=== PATIENT | female | born 1940 | race Caucasian/White ===

== ENCOUNTER → 2019-07-22 | Outpatient (CLI) | payer OTHER, BC ==
[~2019-07-22] VITALS: Ht 154.9 cm; Wt 69.4 kg
[~2019-07-22] MED LIST: ASA81BEC PO; ATORVASTATIN CA80 MG PO; BENICAR40 MG PO; FOSAMAX 70 MG T70 MG PO; IRON PO; OMEPRAZOLE 20 M20 M1 PO; VITAMIN C500 M2 PO; VITAMIN D250000 UNIT PO
--- NOTE | ~2019-07-22 | HPC ---
[facility] [place] [address] PAIN MANAGEMENT CONSULTATION Name: CAHU HOWELL Room #: REG [facility] M..#: [id number] Admission: 07/22/19 Attend Phys: Antonio Preciado MD Discharge: Date of : 40 Report #: [id number] THIS REPORT FOR: //name// CC: Adair Underwood MD [facility] ERINN Paiz MD DATE OF SERVICE: 07/22/2019 CHIEF COMPLAINT: Low back pain radiating into both hips and legs. HISTORY OF PRESENT ILLNESS: The patient is a delightful 79-year-old very active female who is here today complaining of pain in her back, hips and legs. The pain is severe, particularly when she is "being idle" When she sits too long or even lies down in bed at night, she has severe pain in her back that radiates into her legs, left worse than right. When she is walking, she is at her best. She mowed her lawn yesterday. She enjoys playing outside with her grandchildren, kicking the ball and playing baseball. She is able to do those things fine. It is only when she slows down or sits that the pain becomes severe and radicular. She describes her pain in that setting as a constant, burning, shooting, aching pain and she scores as a 10/10 when it occurs. MEDICATIONS: Omeprazole, alendronate, atorvastatin, olmesartan, vitamin D and C, iron, aspirin. ALLERGIES: None. PAST MEDICAL HISTORY: She had a shoulder surgery with Dr. Twin Paiz on 12/10/2018. She is treated for hypertension by Dr. Underwood and Dr. Hardwick. She otherwise complains of no other significant medical problems other than generalized arthritis and back pain. REVIEW OF SYSTEMS: Completed by the patient is negative other than some constipation and nocturia and occasional lightheadedness and dizziness. SOCIAL HISTORY: Listed as retired. She denies use of tobacco, alcohol, marijuana or any other illegal substances. PHYSICAL EXAMINATION: GENERAL: She is a very pleasant, 79-year-old, who looks and acts younger than her age. She moves easily from sitting to standing position, ambulates without antalgic features. [facility] [address] [place] [address] PAIN MANAGEMENT CONSULTATION Name: CHAU HOWELL [facility] [id number] Admission: 07/22/19 Attend Phys: Antonio Preciado MD Discharge: Date of : 40 Report #: [id number] VITAL SIGNS: She is 5 feet 1 inch, 153 pounds, BMI 28.9. Blood pressure 145/92, heart rate 93, respirations 16, O2 sat 97. HEENT: Reveals pupils to be equal, round, reactive to light. EOMs are intact. Mucous membranes are moist. NECK: Supple. No tenderness in the occiput. Good range of motion. CHEST: Clear. CARDIAC: Regular rhythm without murmur. ABDOMEN: Soft, no organomegaly. MUSCULOSKELETAL: Positive for some increased pain with lateral tilt, rotational movements, forward flexion and extension. Straight leg raising is mildly positive in the supine position, worse on the left than the right. Sensation is intact with no focal areas of numbness and there are no areas or dermatomal distributions or myotomal weakness. DIAGNOSTIC DATA: X-rays reviewed. There is no evidence of spinal stenosis. There is, however, at multiple levels, evidence of [id number] bilateral neural foraminal narrowing due to a diffuse disk desiccation and bulging, particularly L3-L4 through L5-S1. The foraminal narrowing is most significant at L4-L5 as well as L3-L4. This would be consistent with some of the radicular-like symptoms. RECOMMENDATIONS: She is a good candidate for an epidural injection. Reviewed the potential risks and benefits of this procedure with her, and she would like to proceed with treatment. We will reschedule her back in the clinic for an injection in a few days at her request. I explained the procedure in detail including risks and benefits. Medications and therapy have been discussed as well. We will discuss this further at followup visit. By: [id number] Antonio Preciado MD /nt
[2019-07-22 15:02] VITALS: BP 145/92
--- NOTE | 2019-07-22 15:03 | NUR ---
Pain Clinic Assessment: 1. History of Osteoarthritis: Left Lower Extremity Right Lower Extremity Left Upper Extremity Right Lower Extremity History of Rheumatoid Arthritis: Not Applicable 2. Height: 5 ft. 1 in. 154.9 cm. Weight: 153.0 lb. oz. 69.400 kg. Patient's BMI: 28.9 3. Vital Signs: BP: 145/92 Pulse: 93 Resp: 16 Temp: 02 Sat: 97 ECG Mon: 4. Pain Intensity: 10 5. Fall Risk: Dizziness: N Needs help standing or walking: N Fallen in the last 3 months: N Fall risk comments: 6. Patient on Blood Thinner: None 7. History of Hypertension: Y 8. Opioid Therapy greater than 6 weeks: N Opiate Contract Signed: 9. Risk Assessment Tool Provided: 10. Functional Assessment Tool: 11. Recreational Drug Use: Never Drug Type: Tobacco Use: Never Smoker Tobacco Type: Amount or Packs/day: How Many Years: Alcohol Use: No Frequency: Quant:
== END ==
LOC: PAIN 07:00
DX: M54.5 Low back pain (principal); I10 Essential (primary) hypertension; Z79.899 Other long term (current) drug therapy

== ENCOUNTER → 2019-07-27 | Outpatient (CLI) | payer OTHER, BC ==
[~2019-07-27] VITALS: Ht 154.9 cm; Wt 70.5 kg
--- NOTE | ~2019-07-27 | HPC ---
[facility] [place] [address] [place] [address] PAIN MANAGEMENT CONSULTATION Name: CHAU HOWELL Room #: REG [facility] M..#: [id number] Admission: 07/27/19 Attend Phys: Antonio Preciado MD Discharge: Date of : 40 Report #: [id number] THIS REPORT FOR: //name// CC: Adair Paiz MD DATE OF SERVICE: 07/27/2019 Followup visit for intractable low back pain with radiculopathy. Bilateral neural foraminal narrowing and stenosis. The patient was seen in consultation on 07/22/2019. At that time, we were unable to proceed with injection. We received preauthorization to go forward and I have explained the procedure to her in some detail including potential risks and benefits. Please refer to prior dictation of 07/22/2019. Today, there have been no significant changes in her condition since her last visit 10 days ago. PHYSICAL EXAMINATION: She is pleasant. Blood pressure 139/84, heart rate 77, respirations 16, O2 sat 98. Her gait is mildly antalgic. She continues to show some increased pain with spinal rotational movements and lateral tilt and there is mild radicular symptom with straight leg raising bilaterally, worse on the left than the right. IMPRESSION: Lumbar radiculopathy. PROCEDURE: Lumbar epidural steroid injection under fluoroscopic guidance. The patient was taken to fluoroscopic suite, placed in prone position. Skin prepped with ChloraPrep. Skin anesthetized over the L4-L5 interspace. A 20-gauge Tuohy epidural needle was advanced in first attempt in the epidural space with loss of resistance technique. There was no blood or CSF aspirated. A 1 mL of Omnipaque was injected. Good spread of the dye was observed in the epidural space and an excellent epidurogram achieved. It was followed by 3 mL of 0.5% lidocaine with 80 mg of triamcinolone. She tolerated the procedure well. There were no complications and she was discharged with a pain score of 0 from the recovery room with a followup visit. I plan to see her back in 03-[address] [facility] [address] [place] [address] PAIN MANAGEMENT CONSULTATION Name: CHAU HOWELL Room #: REG [facility].#: [id number] Admission: 07/27/19 Attend Phys: Antonio Preciado MD Discharge: Date of : 40 Report #: [id number] weeks if necessary. If she is doing well, we will hold off on further injections. By: [id number] Antonio Preciado MD /nt
[2019-07-27 09:44] VITALS: BP 139/84
--- NOTE | 2019-07-27 10:04 | NUR ---
Pain Clinic Assessment: 1. History of Osteoarthritis: Left Lower Extremity Right Lower Extremity Left Upper Extremity Right Lower Extremity History of Rheumatoid Arthritis: Not Applicable 2. Height: 5 ft. 1 in. 154.9 cm. Weight: 155.4 lb. oz. 70.489 kg. Patient's BMI: 29.4 3. Vital Signs: BP: 139/84 Pulse: 77 Resp: 16 Temp: 02 Sat: 98 ECG Mon: 4. Pain Intensity: 8-9 5. Fall Risk: Dizziness: Y Needs help standing or walking: N Fallen in the last 3 months: N Fall risk comments: 6. Patient on Blood Thinner: None 7. History of Hypertension: Y 8. Opioid Therapy greater than 6 weeks: N Opiate Contract Signed: 9. Risk Assessment Tool Provided: 10. Functional Assessment Tool: 11. Recreational Drug Use: Never Drug Type: Tobacco Use: Never Smoker Tobacco Type: Amount or Packs/day: How Many Years: Alcohol Use: No Frequency: Quant:
== END | disposition home or self-care (01) ==
LOC: PAIN 06:49
DX: M54.16 Radiculopathy, lumbar region (principal); M99.73 Connective tissue and disc stenosis of intervertebral foramina of lumbar region; Z79.899 Other long term (current) drug therapy; Z79.82 Long term (current) use of aspirin; Z98.890 Other specified postprocedural states

== ENCOUNTER → 2020-03-08 | Outpatient (CLI) | payer OTHER, BC | LOC: SJCVC 10:47 | DX: I10 Essential (primary) hypertension (principal); E78.00 Pure hypercholesterolemia, unspecified; K21.9 Gastro-esophageal reflux disease without esophagitis ==

== ENCOUNTER → 2020-10-25 | Outpatient (CLI) | payer OTHER | LOC: SJCVCIMAG 07:44 | PROVIDERS: ATTEND Internal Medicine Cardiovascular Disease | DX: R07.9 Chest pain, unspecified (principal); R42 Dizziness and giddiness; I10 Essential (primary) hypertension; E78.00 Pure hypercholesterolemia, unspecified; E78.5 Hyperlipidemia, unspecified ==

== ENCOUNTER → 2021-05-10 | Outpatient (CLI) | payer OTHER ==
[~2021-05-10] VITALS: Ht 154.9 cm; Wt 65.9 kg
[~2021-05-10] MED LIST changes: +ALEVE220 MG PO
[2021-05-10 12:55] VITALS: BP 146/79
--- NOTE | 2021-05-10 13:10 | NUR ---
Pain Clinic Assessment: 1. History of Osteoarthritis: Left Lower Extremity Right Lower Extremity Left Upper Extremity Right Lower Extremity History of Rheumatoid Arthritis: Not Applicable 2. Height: 5 ft. 1 in. 154.9 cm. Weight: 145.2 lb. oz. 65.862 kg. Patient's BMI: 27.4 3. Vital Signs: BP: 146/79 Pulse: 82 Resp: 14 Temp: 02 Sat: 95 ECG Mon: 4. Pain Intensity: 3-4 5. Fall Risk: Dizziness: Y Needs help standing or walking: N Fallen in the last 3 months: N Fall risk comments: 6. Patient on Blood Thinner: None 7. History of Hypertension: Y 8. Opioid Therapy greater than 6 weeks: N Opiate Contract Signed: 9. Risk Assessment Tool Provided: 10. Functional Assessment Tool: 11. Recreational Drug Use: Never Drug Type: Tobacco Use: Never Smoker Tobacco Type: Amount or Packs/day: How Many Years: Alcohol Use: No Frequency: Quant:
== END | disposition home or self-care (01) ==
LOC: PAIN 07:12
PROVIDERS: ATTEND Anesthesiology Pain Medicine
DX: M47.26 Other spondylosis with radiculopathy, lumbar region (principal); M48.061 Spinal stenosis, lumbar region without neurogenic claudication; I10 Essential (primary) hypertension; M19.90 Unspecified osteoarthritis, unspecified site; Z98.890 Other specified postprocedural states; Z79.899 Other long term (current) drug therapy

== ENCOUNTER → 2021-07-25 | Outpatient (CLI) | payer OTHER | LOC: SJCVC 09:48 | PROVIDERS: ATTEND Internal Medicine Cardiovascular Disease | DX: R94.31 Abnormal electrocardiogram [ECG] [EKG] (principal); I10 Essential (primary) hypertension; E78.00 Pure hypercholesterolemia, unspecified; K21.9 Gastro-esophageal reflux disease without esophagitis; Z79.82 Long term (current) use of aspirin; Z79.899 Other long term (current) drug therapy ==

== ENCOUNTER → 2021-07-25 | Outpatient (CLI) | payer OTHER | LOC: CAT 11:08 | PROVIDERS: ATTEND Internal Medicine Cardiovascular Disease | DX: Z13.6 Encounter for screening for cardiovascular disorders (principal); I25.10 Atherosclerotic heart disease of native coronary artery without angina pectoris ==